=== PATIENT | male | born 1970 | race African-American/Black ===

== ENCOUNTER 2019-06-06 16:00 | Emergency (ER) | payer BC, OTHER ==
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
[2019-06-06 16:14] VITALS: BP 137/100
== END 2019-06-06 16:54 | disposition home or self-care (01) ==
LOC: UCCORT 16:00
DX: S01.81XA Laceration without foreign body of other part of head, initial encounter (principal); W22.8XXA Striking against or struck by other objects, initial encounter; Y93.89 Activity, other specified; Y92.9 Unspecified place or not applicable
CPT/HCPCS: 12001; 12011; 99212; G0463

== ENCOUNTER 2019-07-11 10:07 | Emergency (ER) | payer BC, OTHER ==
[2019-07-11 10:35] VITALS: BP 137/90
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
== END 2019-07-11 11:24 | disposition home or self-care (01) ==
LOC: UCEAST 10:07
DX: S89.91XA Unspecified injury of right lower leg, initial encounter (principal); X50.1XXA Overexertion from prolonged static or awkward postures, initial encounter; Y93.89 Activity, other specified; Y92.9 Unspecified place or not applicable; Y99.0 Civilian activity done for income or pay
CPT/HCPCS: 99213; G0463